=== PATIENT | female | born 1950 | race Caucasian/White ===

== ENCOUNTER → 2016-11-19 | Outpatient (REF) | payer MEDICARE, OTHER | LOC: M SFHCPLAZ 16:53 | PROVIDERS: ATTEND Dermatology | DX: D22.5 Melanocytic nevi of trunk (principal) | CPT/HCPCS: 11100; 88305; G0463 ==

== ENCOUNTER → 2017-05-14 | Outpatient (CLI) | payer MEDICARE, OTHER ==
--- NOTE | 2017-05-14 11:24 | REPMRS ---
Patient History The patient states she had a clinical breast exam in 03/10 Patient is postmenopausal. Family history of breast cancer in mother at age 40. Digital Woman Screen Mammo: May 14, 2017 - Exam #: [id number] Bilateral CC and MLO view(s) were taken. Technologist: Delaney Lorenz, Technologist Prior study comparison: May 02, 2016, digital woman screen mammo performed at [facility]. April 24, 2015, digital woman screen mammo performed at [facility]. FINDINGS: There are scattered fibroglandular densities. There has been no change in the appearance of the mammogram from the prior studies. There is a mild amount of residual fibroglandular tissue which is fairly symmetric. There is no interval development of dominant mass, architectural distortion, or clustered microcalcification suggestive of malignancy. ASSESSMENT: BI-RADS/ACR category 1 mammogram. Negative. Recommendation Routine screening mammogram in 1 year (for women over age 40). This mammogram was interpreted with the aid of an FDA-approved computer-aided dectection system. Electronically Signed By: Domingo Clark MD 05/14/17 1124
== END ==
LOC: M WHC 10:36
PROVIDERS: ATTEND Nurse Practitioner Adult Health
DX: Z12.31 Encounter for screening mammogram for malignant neoplasm of breast (principal); Z78.0 Asymptomatic menopausal state; Z80.3 Family history of malignant neoplasm of breast

== ENCOUNTER → 2018-06-02 | Outpatient (CLI) | payer MEDICARE, OTHER | LOC: M WHC 09:01 | DX: Z12.31 Encounter for screening mammogram for malignant neoplasm of breast (principal) | CPT/HCPCS: 77067 ==

== ENCOUNTER 2018-07-28 11:12 | Day surgery (SDC) | payer MEDICARE, OTHER ==
[2018-07-28] MEDS: NS 1,000 ML IV (11:28)
[2018-07-28] MEDS ORDERED: PROPOFOL 200 MG/20 ML VIAL As Ordered ×3 (12:43→12:55)
[2018-07-28] MEDS ORDERED: ePHEDrine SULFATE 25 MG/5 ML(5MG/ML) SYRINGE As Ordered (12:43)
[2018-07-28] MEDS ORDERED: LIDOCAINE 2% INJ 100 MG/5 ML SDV (FOR ANES.) As Ordered (12:43)
[2018-07-28] MEDS ORDERED: GLYCOPYRROLATE INJ 0.2 MG/ML 2 ML VIAL As Ordered (12:44)
== END 2018-07-28 13:41 | disposition home or self-care (01) ==
LOC: M OPP 11:12
DX: Z12.11 Encounter for screening for malignant neoplasm of colon (principal); D12.5 Benign neoplasm of sigmoid colon
CPT/HCPCS: 45380

== ENCOUNTER → 2019-06-16 | Outpatient (CLI) | payer MEDICARE, OTHER ==
[~2019-06-16] MED LIST: CALCTAB74 PO; GLUC1CAP10 PO; OMEG100011 PO; TRIA37.5; VITA100067 PO; VITA500T PO; XALA0.007 OU
--- NOTE | 2019-06-16 09:26 | REPMRS ---
Patient History The patient states she had a clinical breast exam in 01/2019. Family history of breast cancer at age 40 in mother. No Hormone Replacement Therapy 3D TOMOSYNTHESIS WAS PERFORMED. [facility] lifetime risk for breast cancer is 6.2%. Digital Woman Screen Mammo: June 16, 2019 - Exam #: [id number] Bilateral CC and MLO view(s) were taken. Technologist: Reva Allen, Technologist Prior study comparison: June 02, 2018, bilateral digital woman screen mammo performed at [facility]. May 14, 2017, digital woman screen mammo performed at [facility]. FINDINGS: There are scattered fibroglandular densities. There has been no change in the appearance of the mammogram from the prior studies. There is a mild amount of residual fibroglandular tissue which is fairly symmetric. There is no interval development of dominant mass, architectural distortion, or clustered microcalcification suggestive of malignancy. Assessment: BI-RADS/ACR category 1 mammogram. Negative Mammogram. Recommendation Routine screening mammogram in 1 year (for women over age 40). This mammogram was interpreted with the aid of an FDA-approved computer-aided dectection system. Electronically Signed By: Domingo Clark MD 06/16/19 0932
== END ==
LOC: M WHC 07:52
PROVIDERS: ATTEND Nurse Practitioner Adult Health
DX: Z12.31 Encounter for screening mammogram for malignant neoplasm of breast (principal); Z80.3 Family history of malignant neoplasm of breast

== ENCOUNTER → 2019-11-11 | Outpatient (CLI) | payer MEDICARE, OTHER ==
[~2019-11-11] MED LIST changes: +PROHANCE 279.3MG/ML 15ML VIAL (A9576) As Ordered ONE
--- NOTE | 2019-11-11 18:27 | REPVR ---
PROCEDURE INFORMATION: Exam: MR Head Without and With Contrast; Internal Auditory Canals Exam date and time: 11/11/2019 4:15 PM Age: 69 years old Clinical indication: Other: Hearing loss TECHNIQUE: Imaging protocol: MR of the head without and with intravenous contrast. Exam focused on the internal auditory canals. 3D rendering: MIP and/or 3D reconstructed images were created by the technologist. Contrast material: PROHANCE; Contrast volume: 12 ml; Contrast route: IV; COMPARISON: No relevant prior studies available. FINDINGS: Brain: Multiple small foci of T2 lengthening are demonstrated in the subcortical, periventricular and centrum semiovale white matter consistent with age-related small vessel gliosis. Ventricles: No ventriculomegaly. Mastoid air cells: Small mastoid effusion on the right. Otherwise unremarkable. Internal auditory canals: Unremarkable. 7th and 8th cranial nerves are unremarkable. No abnormal masses. Bones/joints: Unremarkable. IMPRESSION: 1. Multiple small foci of T2 lengthening are demonstrated in the subcortical, periventricular and centrum semiovale white matter consistent with age-related small vessel gliosis. 2. No acute findings. 3. Small mastoid effusion on the right. 4. Normal appearance of the 7th and 8th nerves. Electronically signed by: Adeel Harris On 11/11/2019 18:27:12 PM
== END ==
LOC: M RAD 15:09
PROVIDERS: ATTEND Otolaryngology
DX: H90.41 Sensorineural hearing loss, unilateral, right ear, with unrestricted hearing on the contralateral side (principal)
CPT/HCPCS: 70553; A9576

== ENCOUNTER → 2020-06-19 | Outpatient (CLI) | payer MEDICARE, OTHER ==
[~2020-06-19] MED LIST changes: -PROHANCE 279.3MG/ML 15ML VIAL (A9576) As Ordered ONE; +VITA-243 PO; -VITA500T PO
--- NOTE | 2020-06-19 09:02 | REPMRS ---
Patient History Family history of breast cancer at age 40 in mother. No Hormone Replacement Therapy 3D TOMOSYNTHESIS WAS PERFORMED. The [facility] lifetime risk for breast cancer is 5.9%. Volpara breast density b. Digital Woman Screen Mammo: June 19, 2020 - Exam #: [id number] Bilateral CC and MLO view(s) were taken. Technologist: Itzel Neville, Technologist Prior study comparison: June 16, 2019, bilateral digital woman screen mammo performed at [facility]. June 02, 2018, bilateral digital woman screen mammo performed at [facility]. FINDINGS: There are scattered fibroglandular densities. There has been no change in the appearance of the mammogram from the prior studies. There is a mild amount of residual fibroglandular tissue which is fairly symmetric. There is no interval development of dominant mass, architectural distortion, or clustered microcalcification suggestive of malignancy. Assessment: BI-RADS/ACR category 1 mammogram. Negative Mammogram. Recommendation Routine screening mammogram in 1 year (for women over age 40). This mammogram was interpreted with the aid of an FDA-approved computer-aided dectection system. Electronically Signed By: Domingo Clark MD 06/19/20 0902
--- NOTE | 2020-06-21 15:36 | DEXA ---
AP SPINE L1 - L4 1.266 0.6 2.2 LT FEMUR TOTAL 0.835 -1.4 0.0 LT NECK 0.783 -1.8 -0.2 RT FEMUR TOTAL 0.837 -1.4 0.0 RT NECK 1.001 -0.3 1.4 TOTAL BODY TOTAL OTHER COMMENTS: Normal bone densitometry of the spine. Normal bone densitometry of the right hip. There is low bone density of the left hip. The decreased density of the spine does not represent significant change. The decreased density of the left hip does represent a significant change. The increased density of the right hip does not represent significant change. The density of the spine has increased 15.4% since the initial exam on 09/12/2000. The decreased 0.6% since most recent exam on 06/02/2018. The density of the left hip has increased 5.2% since the initial exam on 09/12/2000. The density of the left hip has decreased 3.6% since the most recent exam on 06/02/2018. The density of the right hip has increased 9.3% since the initial exam on 09/12/2000. The density of the right hip has increased 0.5% since the most recent exam on 06/02/2018. FOLLOW-UP: Recommendation for the next bone density exam: 2 years. SHAKIRA
== END ==
LOC: M WHC 07:58
PROVIDERS: ATTEND Nurse Practitioner Adult Health
DX: Z12.31 Encounter for screening mammogram for malignant neoplasm of breast (principal); M85.80 Other specified disorders of bone density and structure, unspecified site

== ENCOUNTER → 2021-03-23 | Outpatient (REF) | payer MEDICARE, OTHER ==
[2021-03-23 17:49] LABS: BACTERIA, URINE AUTO NEGATIVE (NEGATIVE); MUCUS, URINE SMALL (NEGATIVE); RBC, URINE AUTO 1 /HPF (0-3); SQUAMOUS EPITHELIAL CELL UR AU 0 /HPF (0-6); WBC, URINE AUTO 1 /HPF (0-3)
== END ==
LOC: M LAB REF 16:22
PROVIDERS: ATTEND Nurse Practitioner Adult Health
DX: R31.9 Hematuria, unspecified (principal)

== ENCOUNTER → 2021-06-26 | Outpatient (CLI) | payer MEDICARE, OTHER ==
--- NOTE | 2021-06-26 09:53 | REPMRS ---
Patient History The patient states she had a clinical breast exam 2020. Family history of breast cancer at age 40 in mother. No Hormone Replacement Therapy Tomosynthesis is performed. Volpara breast density is b. [facility] lifetime risk of breast cancer 5.5%. Patient states no breast complaints today. Patient has signed MRS History Sheet. Digital Woman Screen Mammo: June 26, 2021 - Exam #: [id number] Bilateral CC and MLO view(s) were taken. Technologist: Agata Dobbins, Shot Peen Operator Prior study comparison: June 19, 2020, bilateral digital woman screen mammo performed at [facility]. June 16, 2019, bilateral digital woman screen mammo performed at [facility]. FINDINGS: There are scattered fibroglandular densities. There has been no change in the appearance of the mammogram from the prior studies. There is a mild amount of residual fibroglandular tissue which is fairly symmetric. There is no interval development of dominant mass, architectural distortion, or clustered microcalcification suggestive of malignancy. Assessment: BI-RADS/ACR category 1 mammogram. Negative Mammogram. Recommendation Routine screening mammogram in 1 year (for women over age 40). This mammogram was interpreted with the aid of an FDA-approved computer-aided dectection system. Electronically Signed By: Domingo Clark MD 06/26/21 0953
== END ==
LOC: M WHC 07:34
PROVIDERS: ATTEND Nurse Practitioner Adult Health
DX: Z12.31 Encounter for screening mammogram for malignant neoplasm of breast (principal); Z80.3 Family history of malignant neoplasm of breast

== ENCOUNTER → 2022-06-28 | Outpatient (CLI) | payer MEDICARE, OTHER | LOC: M WHC 08:00 | PROVIDERS: ATTEND Nurse Practitioner Adult Health | DX: Z12.31 Encounter for screening mammogram for malignant neoplasm of breast (principal); Z13.820 Encounter for screening for osteoporosis; M85.851 Other specified disorders of bone density and structure, right thigh; M85.852 Other specified disorders of bone density and structure, left thigh ==

== ENCOUNTER 2023-02-01 09:51 | Emergency (ER) | payer MEDICARE, OTHER ==
[~2023-02-01] VITALS: Ht 162.6 cm; Wt 65.7 kg
[2023-02-01] MEDS ORDERED: TIMO0.5S20 (10:17)
[2023-02-01] MEDS ORDERED: HYDR-3490 (10:17)
[2023-02-01] MEDS ORDERED: DOXYCYCLINE HYCLATE 100MG TABLET PO ONE (11:45)
[2023-02-01 11:58] VITALS: BP 111/69; TEMP 97.3; O2SAT 97
== END 2023-02-01 13:28 | disposition home or self-care (01) ==
LOC: M ED 09:51
DX: S70.362A Insect bite (nonvenomous), left thigh, initial encounter (principal); W57.XXXA Bitten or stung by nonvenomous insect and other nonvenomous arthropods, initial encounter; Y92.89 Other specified places as the place of occurrence of the external cause; Y93.89 Activity, other specified; Y99.8 Other external cause status; Z79.899 Other long term (current) drug therapy

== ENCOUNTER → 2023-06-30 | Outpatient (CLI) | payer MEDICARE, OTHER ==
[~2023-06-30] MED LIST changes: +HYDR-3490; +TIMO0.5S20
== END ==
LOC: M WHC 08:25
PROVIDERS: ATTEND Nurse Practitioner Adult Health
DX: Z12.31 Encounter for screening mammogram for malignant neoplasm of breast (principal)

== ENCOUNTER → 2024-07-02 | Outpatient (CLI) | payer MEDICARE, OTHER | LOC: M WHC 07:32 | PROVIDERS: ATTEND Internal Medicine | DX: Z12.31 Encounter for screening mammogram for malignant neoplasm of breast (principal); M85.89 Other specified disorders of bone density and structure, multiple sites; R92.323 Mammographic fibroglandular density, bilateral breasts ==

== ENCOUNTER → 2025-07-05 | Outpatient (CLI) | payer MEDICARE, OTHER | LOC: M WHC 07:41 | PROVIDERS: ATTEND Nurse Practitioner Family | DX: Z12.31 Encounter for screening mammogram for malignant neoplasm of breast (principal); R92.323 Mammographic fibroglandular density, bilateral breasts ==